=== PATIENT | male | born 1955 | race Caucasian/White ===

== ENCOUNTER 2017-09-11 22:51 | Emergency (ER) | payer OTHER ==
[~2017-09-11] VITALS: Ht 180.3 cm; Wt 84.4 kg
[~2017-09-11 22:51] MED LIST: ALBU90I INH; DOXY100 PO; FLUSAL2505 IH; HYDACE5 PO; IBUP600 PO; IBUP800 PO; LIDO5TP TOP; MOXI400 PO; Norco 5-325 Ta1 EACH PO; OXYACE5T PO; TRAM50 PO; Zofran Odt4 MG SL
[2017-09-11] MEDS ORDERED: ALBU90OI INH (23:13)
[2017-09-12] MEDS ORDERED: IBUP600 PO (00:21)
[2018-02-01] MEDS ORDERED: ALBU90OI INH (20:45)
== END 2017-09-12 00:35 | disposition home or self-care (01) ==
LOC: ER 22:51
DX: S83.92XA Sprain of unspecified site of left knee, initial encounter (principal); I10 Essential (primary) hypertension; J43.9 Emphysema, unspecified; F17.210 Nicotine dependence, cigarettes, uncomplicated; Z88.8 Allergy status to other drugs, medicaments and biological substances; Z86.19 Personal history of other infectious and parasitic diseases; X50.1XXA Overexertion from prolonged static or awkward postures, initial encounter; Y93.39 Activity, other involving climbing, rappelling and jumping off
CPT/HCPCS: 73562-LT; 73590; 73610; 99283

== ENCOUNTER 2021-01-19 04:06 | Inpatient (IN) | payer OTHER | END 2021-01-31 14:31 | disposition home health service (06) | DRG 917 | LOC: ER 04:06 → ERHOLD 06:26 → MEDS 13:52 → ICUW 01-21 12:59 → MEDS 01-24 17:01 | PROVIDERS: ADMIT Family Medicine | DX: T43.621A Poisoning by amphetamines, accidental (unintentional), initial encounter (principal); G92 Toxic encephalopathy; A41.9 Sepsis, unspecified organism; M62.82 Rhabdomyolysis; E87.1 Hypo-osmolality and hyponatremia; E87.2 Acidosis; N30.00 Acute cystitis without hematuria; F10.231 Alcohol dependence with withdrawal delirium; M48.56XA Collapsed vertebra, not elsewhere classified, lumbar region, initial encounter for fracture; I10 Essential (primary) hypertension; M19.90 Unspecified osteoarthritis, unspecified site; J43.9 Emphysema, unspecified; E87.6 Hypokalemia; J45.909 Unspecified asthma, uncomplicated; J32.9 Chronic sinusitis, unspecified; E86.0 Dehydration; D69.6 Thrombocytopenia, unspecified; R04.0 Epistaxis; R45.1 Restlessness and agitation; M48.061 Spinal stenosis, lumbar region without neurogenic claudication; F03.90 Unspecified dementia, unspecified severity, without behavioral disturbance, psychotic disturbance, mood disturbance, and anxiety; F17.210 Nicotine dependence, cigarettes, uncomplicated; F15.10 Other stimulant abuse, uncomplicated; F12.10 Cannabis abuse, uncomplicated; Z86.19 Personal history of other infectious and parasitic diseases; Z88.8 Allergy status to other drugs, medicaments and biological substances; Z98.890 Other specified postprocedural states; Z71.51 Drug abuse counseling and surveillance of drug abuser; Z78.1 Physical restraint status ==